=== PATIENT | female | born 1970 | race Two or more races ===

== ENCOUNTER 2017-02-19 06:57 | Inpatient (IN) | payer OTHER ==
[2017-02-14 09:07] VITALS: BP 123/79
[~2017-02-19] VITALS: Ht 154.9 cm; Wt 57.1 kg
[~2017-02-19 06:57] MED LIST: MULT1TAB60 PO; NORG1TAB57 PO
[2017-02-19] MEDS ORDERED: LIDOCAINE 1%, 2ML ONE (07:47)
[2017-02-19] MEDS ORDERED: LACTATED RINGERS 1,000 ML IV SCH (08:00)
[2017-02-19] MEDS ORDERED: LIDOCAINE 1%, 2ML SQ PRN (08:00)
[2017-02-19 08:18] LABS: HCG UR OBC PASS
[2017-02-19] MEDS ORDERED: DEXAMETHASONE 4 MG/ML, 1ML ONE (09:39)
[2017-02-19] MEDS ORDERED: ROCURONIUM 10 MG/ML ONE (09:39)
[2017-02-19] MEDS ORDERED: NEOSTIGMINE 1 MG/ML, 10ML ONE (09:39)
[2017-02-19] MEDS ORDERED: PROPOFOL 10 MG/ML, 20ML ONE (09:39)
[2017-02-19] MEDS ORDERED: GLYCOPYRROLATE 0.2MG/1ML ONE (09:39)
[2017-02-19] MEDS ORDERED: EPHEDRINE 50 MG/ML, 1ML ONE (09:39)
[2017-02-19] MEDS ORDERED: CEFAZOLIN 1,000 MG ONE (09:39)
[2017-02-19] MEDS ORDERED: MIDAZOLAM 1 MG/ML, 2ML ONE (09:44)
[2017-02-19] MEDS ORDERED: FENTANYL PF 100 MCG/2ML ONE ×4 (09:44→12:17)
[2017-02-19] MEDS ORDERED: OXYcodone 5 MG/5 ML ORAL.SOL UDC PO PRN (10:30)
[2017-02-19] MEDS ORDERED: METOPROLOL 1 MG/ML, 5ML IV PRN (10:30)
[2017-02-19] MEDS ORDERED: hydrALAzine 20 MG/ML, 1ML IV PRN (10:30)
[2017-02-19] MEDS ORDERED: MIDAZOLAM 1 MG/ML, 2ML IV PRN (10:30)
[2017-02-19] MEDS ORDERED: PROMETHAZINE 25 MG/ML, 1ML IV PRN (10:30)
[2017-02-19] MEDS ORDERED: HYDROmorphone 1 MG/ML, 1ML IV PRN (10:30)
[2017-02-19] MEDS ORDERED: ACETAMINOPHEN 325 MG TABLET PO PRN (10:30)
[2017-02-19] MEDS ORDERED: ALBUTEROL SULFATE 2.5 MG/3 ML NPPB PRN (10:30)
[2017-02-19] MEDS ORDERED: MEPERIDINE/PF 25MG/0.5ML IVPush PRN (10:30)
[2017-02-19] MEDS ORDERED: HYDROmorphone 2 MG/ML, 1ML ONE (11:03)
[2017-02-19] MEDS ORDERED: ROPIvacaine/PF 0.2%, 20 ML ONE (11:33)
[2017-02-19] MEDS: LACTATED RINGERS 1,000 ML IV SCH ×3 (12:10→20:58)
[2017-02-19] MEDS ORDERED: OXYcodone 5 MG/5 ML ORAL.SOL UDC ONE (12:17)
[2017-02-19] MEDS ORDERED: HYDROmorphone 1 MG/ML, 1ML ONE (12:17)
[2017-02-19] MEDS ORDERED: ACETAMINOPHEN 650 MG/20.3 ML UDC ONE (12:17)
[2017-02-19] MEDS ORDERED: HYDROmorphone 2 MG/ML, 1ML IVPush PRN (12:30)
[2017-02-19] MEDS ORDERED: ONDANSETRON 2MG/ML, 2ML IVPush PRN (12:30)
[2017-02-19] MEDS: FENTANYL PF 100 MCG/2ML IV PRN ×2 (12:42→12:55)
[2017-02-19] MEDS ORDERED: KETOROLAC 30 MG/1 ML ONE (12:43)
[2017-02-19] MEDS: KETOROLAC 30 MG/1 ML IVPush PRN (12:44)
[2017-02-19 13:50] VITALS: BP 118/75
[2017-02-19] MEDS: OXYcodone 5 MG/5 ML ORAL.SOL UDC PO PRN ×2 (16:19→20:58)
[2017-02-19] MEDS: SIMETHICONE 80 MG CHEW TAB PO SCH ×2 (16:20→20:58)
[2017-02-19 20:52] VITALS: BP 120/80
[2017-02-19] MEDS: DOCUSATE 100 MG CAPSULE PO SCH (20:58)
[2017-02-20 00:06] VITALS: BP 107/65
[2017-02-20 03:38] VITALS: BP 113/69
[2017-02-20] MEDS: OXYcodone 5 MG/5 ML ORAL.SOL UDC PO PRN ×4 (04:07→22:04)
[2017-02-20] MEDS: LACTATED RINGERS 1,000 ML IV SCH ×3 (04:10→20:10)
[2017-02-20 05:40] LABS: HEMATOCRIT 37.7 % (34.6-47.8)
[2017-02-20 05:52] LABS: BLOOD UREA NITROGEN 8 mg/dL (7-18)
[2017-02-20 08:16] VITALS: BP 133/79
[2017-02-20] MEDS: SIMETHICONE 80 MG CHEW TAB PO SCH ×3 (08:19→20:37)
[2017-02-20] MEDS: DOCUSATE 100 MG CAPSULE PO SCH ×2 (08:19→20:37)
[2017-02-20] MEDS: KETOROLAC 30 MG/1 ML IVPush PRN ×3 (08:19→22:04)
[2017-02-20 14:26] VITALS: BP 111/74
[2017-02-20 18:50] VITALS: BP 109/69
[2017-02-21] MEDS ORDERED: OXYC-302 PO ×2 (00:48→00:49)
[2017-02-21] MEDS ORDERED: IBUP200T48 PO (01:31)
[2017-02-21] MEDS ORDERED: DOCU-131 PO (01:34)
[2017-02-21 02:23] VITALS: BP 99/64
[2017-02-21] MEDS: LACTATED RINGERS 1,000 ML IV SCH (04:10)
[2017-02-21 07:35] VITALS: BP 108/73
[2017-02-21] MEDS: OXYcodone 5 MG/5 ML ORAL.SOL UDC PO PRN (07:42)
[2017-02-21] MEDS: DOCUSATE 100 MG CAPSULE PO SCH (07:42)
[2017-02-21] MEDS: SIMETHICONE 80 MG CHEW TAB PO SCH (07:42)
[2017-02-21] MEDS: KETOROLAC 30 MG/1 ML IVPush PRN (07:42)
== END 2017-02-21 09:08 | disposition home or self-care (01) | DRG 743 ==
LOC: ORIP 06:57 → 4NOR 13:44
PROVIDERS: ADMIT Student in an Organized Health Care Education/Training Program; ATTEND Student in an Organized Health Care Education/Training Program
PROC: 0UTC0ZZ Resection of Cervix, Open Approach (ICD-10-PCS; 2017-02-19)
PROC: 0UT70ZZ Resection of Bilateral Fallopian Tubes, Open Approach (ICD-10-PCS; 2017-02-19)
PROC: 0UT90ZZ Resection of Uterus, Open Approach (ICD-10-PCS; principal; 2017-02-19 09:00)
DX: D25.9 Leiomyoma of uterus, unspecified (principal); N83.8 Other noninflammatory disorders of ovary, fallopian tube and broad ligament; N83.292 Other ovarian cyst, left side; N92.0 Excessive and frequent menstruation with regular cycle; Z80.41 Family history of malignant neoplasm of ovary; Z82.49 Family history of ischemic heart disease and other diseases of the circulatory system; Z83.3 Family history of diabetes mellitus; Z84.1 Family history of disorders of kidney and ureter
CPT/HCPCS: 36415; 80048; 81025; 85014; 85018; 86850; 86900; 88307; J0690; J1100; J1170; J1885; J2250; J2704; J2710; J2795; J3010; J3490; J7120